=== PATIENT | female | born 1975 | race Caucasian/White ===

== ENCOUNTER 2021-03-08 08:06 | Outpatient (CLI) | payer BC | END 2021-03-08 08:07 | disposition home or self-care (01) | LOC: BICULT 08:06 | PROVIDERS: ATTEND Psychiatry & Neurology Neurology | DX: R16.0 Hepatomegaly, not elsewhere classified (principal); N83.202 Unspecified ovarian cyst, left side | CPT/HCPCS: 76856; 93975; 93976 ==

== ENCOUNTER 2023-10-25 07:03 | Outpatient (CLI) | payer OTHER | END 2023-10-25 07:04 | disposition home or self-care (01) | LOC: BICULT 07:03 | PROVIDERS: ATTEND Internal Medicine | DX: I73.9 Peripheral vascular disease, unspecified (principal) | CPT/HCPCS: 93923 ==